=== PATIENT | female | born 2005 | race Hispanic/Latino ===

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

== ENCOUNTER 2024-05-22 07:48 | Emergency (ER) | payer MEDICAID, SELFPAY | END 2024-05-22 09:12 | disposition home or self-care (01) | LOC: ERS 07:48 | DX: T16.2XXA Foreign body in left ear, initial encounter (principal) | CPT/HCPCS: 69200; 99282 ==